=== PATIENT | female | born 1945 | race Caucasian/White ===

== ENCOUNTER → 2016-07-07 | Day surgery (SDC) | payer OTHER ==
[~2016-07-07] MED LIST: BUPIVACAINE HCL PF 0.75% 30 ML VIAL ONE; EPINEPHrine HCL (1:1000) 30 MG/30 ML VIAL ONE; LACTATED RINGER'S 1000 ML INJ 1,000 ML ONE; LIDOCAINE 1.5%/EPINEPHrine 1:200,000 PF SOLN 30 ML AMP ONE; MIDAZOLAM HCL 5 MG/ML VIAL (1 ML) ONE; ONDANSETRON HCL 4 MG/2 ML VIAL IV PUSH ONE; PROPOFOL 200 MG/20 ML AMP IV ONE; ceFAZolin INJ 1,000 MG VIAL ONE
--- NOTE | 2016-07-07 23:33 | MP ---
cc: TATE AGUILAR DATE OF SURGERY 07/07/16 PREOPERATIVE DIAGNOSIS Right shoulder large rotator cuff tear with impingement. POSTOPERATIVE DIAGNOSIS 1. Right shoulder large rotator cuff tear with impingement. 2. Proximal biceps tendon rupture with superior, anterior. posterior labral tear. SURGEON Elisa Aguilar MD [employer]QU[employer]MENT MECHANIC MAXIMILIAN Manley [employer]QU[employer]MENT MECHANIC MAXIMILIAN Becerril The surgical procedure was assisted by my Advanced Registered Nurse Practitioner. My SHEET METAL LAYOUT WORKER presence was necessary throughout this case for the manipulation and positioning of the surgical extremity. My SHEET METAL LAYOUT WORKER was assisting me throughout the duration of this procedure. The skill set of an Advance Registered Nurse Practitioner was medically necessary to complete this procedure. During the surgical case, the neurosurgical physician assistant was working at the back table and the Advance Registered Nurse Practitioner was directly assisting me. PROCEDURES 1. Right shoulder arthroscopic rotator cuff repair with subacromial decompression, 2. Partial acromioplasty, 3. Extensive debridement of biceps tendon stump and anterior, superior, and posterior labrum. ESTIMATED BLOOD LOSS Minimal ANESTHESIA Regional and general PROCEDURE IN DETAIL The patient had regional anesthesia administered. She was brought back to the operative theater. General anesthesia was administered. She received intravenous Ancef. She was placed into a lateral decubitus position. The right upper extremity was placed into 10 pounds of traction and the right upper was prepped and draped in usual sterile fashion. We made a standard posterior arthroscopic portal for the diagnostic arthroscopy. Glenohumeral joint had minimal diffuse grade 1 chondromalacia. Axillary pouch had some synovitis of a moderate degree but no loose bodies noted. We found that the proximal biceps tendon had been ruptured right around the area that it was starting to articulate onto the humeral head interval region which left quite large stump that was flipping in and out of the joint. We manipulated this into the joint and then removed it with an oscillating shaver. We identified that there were tears of the labrum anteriorly, superiorly and posteriorly which were all resected using the oscillating shaver. There were even tears of the posterior labrum going down towards the axillary pouch which were also resected. We identified that was a large tear of the rotator cuff and the supraspinatus tendon which was retracted to about the middle third of the humeral head. We made accessory portal laterally, placed the arthroscope in subacromial space. There was quite a bit of bursitis which was resected using the oscillating shaver. There were significant bone spurs anteriorly and laterally which were removed using an oscillating and forward shaver. We debrided the edge of the rotator cuff. We then anatomically reduced the cuff showing that it mobilized nicely. We then repaired the cuff using a modified Arthrex suture bridge technique. We placed two medial corkscrews, both of which had two individual fiber wires. We threw each of these sutures into a total of four horizontal mattress stitches. These were tied using arthroscopic knot tying technique. We then crisscrossed the sutures. We laid down the posterior set of sutures into a posterolateral swivel lock. We placed a fiber link into an edge of the infraspinatus tendon and then reduced this more anteriorly and laid these down into the anterolateral swivel lock which also contained the other crisscrossed sutures. The tendon overall was in anatomic position and laid down very nicely. Arthroscopic portals were closed with 2-0 Vicryl followed by 3-0 nylon. Arm was dressed. The patient was placed into a sling and swath. Postop plan is standard rotator cuff repair protocol. MD WILEY Umana/ /2:18 PM /11:20 PM
== END | disposition home or self-care (01) ==
LOC: ESDC 10:49
PROVIDERS: ATTEND Orthopaedic Surgery
DX: M75.101 Unspecified rotator cuff tear or rupture of right shoulder, not specified as traumatic (principal); M75.41 Impingement syndrome of right shoulder; S46.211A Strain of muscle, fascia and tendon of other parts of biceps, right arm, initial encounter; S43.431A Superior glenoid labrum lesion of right shoulder, initial encounter
CPT/HCPCS: 01630; 01991; 29823; 29826; 29827; 64417; C1713; J0171; J0690; J2250; J2405; J7120